=== PATIENT | female | born 1975 | race African-American/Black ===

== ENCOUNTER 2024-02-23 13:17 | Emergency (ER) | payer BC ==
--- NOTE | 2024-02-23 13:51 | EDPHYS ---
Physician Documentation [facility] Name: Libertad Montoya Age: 48 yrs Sex: Female : 1975 Arrival Date: 02/23/2024 Time: 13:17 Bed 10 Private MD: ED Physician James Lucia HPI: 02/22 13:51 This 48 yrs old Black Female presents to ER via Ambulatory with complaints of Back Pain.ec2 13:51 Patient arrives today for evaluation of right lateral back pain. Patient reports no ec2 falls injuries or trauma, states that she may have slept on it or twisted it abnormally which caused the pain. Denies any red flag symptoms. Reports some improvement with Tylenol and ibuprofen. Patient reports otherwise movement makes the pain worse.. Historical: - Allergies: 13:43 CLINDOMYCIN; db - Home Meds: 13:42 metoprolol tartrate 50 mg Oral tablet [Active]; db - PMHx: 13:42 Hypertensive disorder; db - Immunization history:: Adult Immunizations unknown. - Infectious Disease History:: Denies. - Social history:: Smoking status: Patient denies any tobacco usage or history of. ROS: 13:51 Constitutional: as per hpi ec2 Exam: 13:51 Constitutional: GEN: NAD Head: atraumatic Eyes: EOMI Ears: External ears are ec2 normal. CV: regular rate LUNGS: no respiratory distress ABD: non-distended SKIN: no evidence of rashes MSK: no evidence of trauma, right lateral low back TTP without deformities or crepitus appreciated, no CVA TTP. No C/T/L-spine TTP. Vital Signs: 13:40 Pulse 76; Resp 16; Temp 98.7; Pulse Ox 98% ; Weight 158.76 kg; Height 5 ft. 5 in. ; db Pain 10/10; 13:40 Body Mass Index 58.24 (158.76 kg, 165.1 cm) db 13:40 Pain Scale: Adult db MDM: 13:43 Medical Screening Exam initiated ec2 13:51 Data reviewed: vital signs, nurses notes. ED course: Patient arrives today for ec2 evaluation of right lateral low back pain. Examination revealing for MSK findings as above. Suspect musculoskeletal pain. Doubt spinal cord pathology given lack of red flag symptoms. Doubt sciatica given lack of radicular symptoms. Will treat the patient for MSK pain. Additionally considered other process such as UTI, pyelonephritis, ureteral stone.. Administered Medications: 14:34 CANCELLED (per MDd): tizanidine6 mg PO once hb 14:47 Drug: Ketorolac IM 30 mg IM once Route: IM; Site: right ventrogluteal; hb 14:48 Follow up: Response: Medication administered at discharge. hb 14:47 Drug: Acetaminophen PO 1000 mg PO once Route: PO; hb 14:47 Follow up: Response: Medication administered at discharge. hb 14:47 Drug: Lidoderm Topical Patch 5 % (700 mg/patch) 1 patches Topical once; leave on for 12 hb hours; cover most painful area; may cut into smaller pieces Route: Topical; Site: affected area; 14:47 Follow up: Response: Medication administered at discharge. hb 14:47 Drug: Diazepam PO 5 mg PO once Route: PO; hb 14:47 Follow up: Response: Medication administered at discharge. hb Disposition Summary: 02/23/24 13:50 Discharge Ordered Notes: Location: Home ec2 Condition: Stable ec2 Diagnosis - Low back pain ec2 Followup: ec2 - With: Private Physician - When: - Reason: Re-evaluation by your physician Discharge Instructions: - Discharge Summary Sheet ec2 - Acute Back Pain, Adult ec2 Forms: - Medication Reconciliation Form ec2 - Antibiotic Education ec2 - Prescription Opioid Use ec2 - Patient Portal Instructions ec2 - Leadership Thank You Letter ec2 Prescriptions: - Zanaflex 4 mg Oral Tablet - take 2 tablets ORAL route every 8 hours As needed; 30 tablet; Refills: 0, ec2 Product Selection Permitted Signatures: Ariana Batres RN RN Nilda Muñoz RN RN db Corral, Edwin, MD MD ec2 Corrections: (The following items were deleted from the chart) 13:43 13:42 Allergies: No Known Allergies; db db 14:34 13:50 tiZANidine PO 6 mg PO once ordered. ec2 hb 14:34 14:33 tiZANidine PO 6 mg PO once ordered. hb hb
--- NOTE | 2024-02-23 13:51 | ER ---
Nurse's Notes [facility] Name: Libertad Montoya Age: 48 yrs Sex: Female : 1975 Arrival Date: 02/23/2024 Time: 13:17 Bed 10 Private MD: Diagnosis: Low back pain Presentation: 02/22 13:40 Chief complaint: Patient states: BACK PAIN STARTED TUESDAY. DENIES RECENT INJURY. db Coronavirus screen: Client denies travel out of the [place] in the last 14 days. At this time, the client does not indicate any symptoms associated with coronavirus-19. Ebola Screen: Patient negative for fever greater than or equal to 101.5 degrees Fahrenheit, and additional compatible Ebola Virus Disease symptoms Patient denies exposure to infectious person. Patient denies travel to an Ebola-affected area in the 21 days before illness onset. No symptoms or risks identified at this time. Initial Sepsis Screen: Does the patient meet any 2 criteria? No. Patient's initial sepsis screen is negative. Does the patient have a suspected source of infection? No. Patient's initial sepsis screen is negative. Risk Assessment: Do you want to hurt yourself or someone else? Patient reports no desire to harm self or others. Onset of symptoms was February 20, 2024. 13:40 Method Of Arrival: Ambulatory db 13:40 Acuity: SG 4 db Triage Assessment: 13:43 General: Appears in no apparent distress. comfortable, Behavior is calm, cooperative. db Pain: Complains of pain in back. Neuro: Level of Consciousness is awake, alert, obeys commands, Oriented to person, place, time, situation. Musculoskeletal: Circulation, motion, and sensation intact. 13:43 Respiratory: Airway is patent Respiratory effort is even, unlabored, Respiratory db pattern is regular, symmetrical. Historical: - Allergies: 13:43 CLINDOMYCIN; db - Home Meds: 13:42 metoprolol tartrate 50 mg Oral tablet [Active]; db - PMHx: 13:42 Hypertensive disorder; db - Immunization history:: Adult Immunizations unknown. - Infectious Disease History:: Denies. - Social history:: Smoking status: Patient denies any tobacco usage or history of. Vital Signs: 13:40 Pulse 76; Resp 16; Temp 98.7; Pulse Ox 98% ; Weight 158.76 kg; Height 5 ft. 5 in. ; db Pain 10/10; 13:40 Body Mass Index 58.24 (158.76 kg, 165.1 cm) db 13:40 Pain Scale: Adult db ED Course: 13:23 Patient arrived in ED. ra3 13:28 James Lucia MD is Attending Physician. ec2 13:42 Triage completed. db 13:43 Arm band placed on. db 14:33 Ariana Batres, RN is Primary Nurse. hb Administered Medications: 14:34 CANCELLED (per MDd): tizanidine6 mg PO once hb 14:47 Drug: Ketorolac IM 30 mg IM once Route: IM; Site: right ventrogluteal; hb 14:48 Follow up: Response: Medication administered at discharge. hb 14:47 Drug: Acetaminophen PO 1000 mg PO once Route: PO; hb 14:47 Follow up: Response: Medication administered at discharge. hb 14:47 Drug: Lidoderm Topical Patch 5 % (700 mg/patch) 1 patches Topical once; leave on for 12 hb hours; cover most painful area; may cut into smaller pieces Route: Topical; Site: affected area; 14:47 Follow up: Response: Medication administered at discharge. hb 14:47 Drug: Diazepam PO 5 mg PO once Route: PO; hb 14:47 Follow up: Response: Medication administered at discharge. hb Outcome: 13:50 Discharge ordered by . ec2 14:48 Patient left the ED. hb Signatures: Ariana Batres RN RN hb Nilda Muñoz RN RN db James Lucia MD MD ec2 Jaki Gilbert ra3 Corrections: (The following items were deleted from the chart) 13:43 13:42 Allergies: No Known Allergies; db db
[2024-02-23] MEDS ORDERED: ACETAMINOPHEN 500 MG TAB ONE (14:36)
[2024-02-23] MEDS ORDERED: DIAZEPAM 5 MG TABLET ONE (14:36)
[2024-02-23] MEDS ORDERED: KETOROLAC 30 MG/ML INJ ONE (14:36)
[2024-02-23] MEDS ORDERED: LIDOCAINE 4% PATCH ONE (14:36)
[2024-02-23 14:52] VITALS: TEMP 98.7; O2SAT 98
== END 2024-02-23 14:48 | disposition home or self-care (01) ==
LOC: ER 13:17
DX: M54.50 Low back pain, unspecified (principal); I10 Essential (primary) hypertension; Z79.899 Other long term (current) drug therapy; Z88.1 Allergy status to other antibiotic agents
CPT/HCPCS: 96372; 99284; J2003